=== PATIENT | male | born 1965 | race Caucasian/White ===

== ENCOUNTER 2024-11-19 12:04 | Inpatient (IN) | payer OTHER ==
[~2024-11-19] VITALS: Ht 162.6 cm; Wt 75.3 kg
[2024-11-19] MEDS: IV NS 0.9% 1,000 ML BAG IV ONE (13:22)
[2024-11-19 13:42] LABS: BASOPHILS # (AUTO) 0.1 K/uL (0.0-0.2); BASOPHILS % (AUTO) 0.8 % (0.0-2.0); EOSINOPHILS # (AUTO) 0.2 K/uL (0.0-0.7); EOSINOPHILS % (AUTO) 3.1 % (0.0-6.0); HEMATOCRIT 43 % (39-51); HEMOGLOBIN 14.9 g/dL (13.5-17.5); LYMPHOCYTES # (AUTO) 1.5 K/uL (0.8-4.8); LYMPHOCYTES % (AUTO) 22.5 % (20.0-44.0); MEAN CORPUSCULAR HEMOGLOBIN 31 PG (26.0-33.0); MEAN CORPUSCULAR HGB CONC 34 g/dl (31.0-36.0); MEAN CORPUSCULAR VOLUME 89 fL (80-96); MONOCYTES # (AUTO) 0.5 K/uL (0.1-1.30); MONOCYTES % (AUTO) 7.6 % (2.0-12.0); NEUTROPHILS # (AUTO) 4.3 K/uL (1.8-8.9); PLATELET COUNT (AUTO) 275 K/uL (150-450); RED BLOOD CELL COUNT(AUTO) 4.85 MIL/uL (4.5-6.0); WHITE BLOOD COUNT (AUTO) 6.6 K/uL (4.3-11.0)
[2024-11-19 13:48] LABS: CALCIUM, SERUM 9.8 mg/dL (8.5-10.1); CARBON DIOXIDE 28 mmol/L (21-32); CHLORIDE 99 mmol/L (98-107); CREATININE 1.3 mg/dL (0.6-1.3); GLUCOSE 387 mg/dL (74-106); POTASSIUM 4.2 mmol/L (3.5-5.1); SODIUM SERUM 135 mmol/L (136-145); UREA NITROGEN, BLOOD 19 mg/dL (7-18)
[2024-11-19 13:52] LABS: ALANINE AMINOTRANSFERASE 31 U/L (12-78); ALBUMIN 3.6 g/dL (3.4-5.0); ALKALINE PHOSPHATASE 127 U/L (46-116); ASPARTATE AMINOTRANSFERASE 15 U/L (15-37); BILIRUBIN,DIRECT 0.1 mg/dL (0.0-0.2); BILIRUBIN,TOTAL 0.3 mg/dL (0.2-1.0); TOTAL PROTEIN, SERUM 8.5 g/dL (6.4-8.2)
[2024-11-19 14:00] LABS: INR 0.92 (0.91-1.10); PARTIAL THROMBOPLASTIN TIME 28.8 SEC (24.3-34.3); PROTHROMBIN TIME 9.8 SECS (9.2-11.1)
[2024-11-19 14:07] LABS: LACTIC ACID 2.6 mmol/L (0.4-2.0)
[2024-11-19] MEDS ORDERED: MULT-594 PO (14:55)
[2024-11-19] MEDS ORDERED: ASPI-1420 PO (14:55)
[2024-11-19] MEDS ORDERED: GLIP5TAB13 PO (14:55)
[2024-11-19] MEDS ORDERED: METO25TA6 PO (14:55)
[2024-11-19] MEDS ORDERED: EMPA25TA PO (14:55)
[2024-11-19] MEDS ORDERED: METF-442 PO (14:55)
[2024-11-19] MEDS ORDERED: ATOR40TA PO (14:55)
[2024-11-19] MEDS ORDERED: OMEG-167 PO (14:55)
[2024-11-19] MEDS ORDERED: MAGNESIUM HYDROXIDE 30 ML UDC PO PRN (18:00)
[2024-11-19] MEDS ORDERED: MAG HYDROX/AL HYDROX/SIMETH 30 ML UDC PO PRN (18:00)
[2024-11-19] MEDS: VANCOMYCIN 1.5 GM in IV D5W 500 ML IV ONE (18:24)
[2024-11-19] MEDS: diphenhydrAMINE HCL 50 MG/ML VIAL IV ONE (18:57)
[2024-11-19 20:00] VITALS: BP 117/95; TEMP 97.5; O2SAT 93
[2024-11-19] MEDS: ZOSYN IVPB 3.375 G in IV D5W 50ml IV ONE (20:29)
[2024-11-19] MEDS: ACETAMINOPHEN 325 MG TABLET PO PRN (21:13)
[2024-11-19] MEDS ORDERED: DEXTROSE 50%-WATER 50 ML DISP.SYRIN IV PRN (22:30)
[2024-11-19] MEDS: BLOOD SUGAR DIAGNOSTIC 1 EACH STRIP VI SCH (22:44)
[2024-11-19] MEDS: *INSULIN REGULAR(HUMULIN R)HUM 100 UNIT/ML VIAL SQ PRN (22:47)
[2024-11-20] MEDS: PIPERACILLIN /TAZOBACTAM 3.375 G in IV D5W 100 ML IV SCH (04:09)
[2024-11-20] MEDS ORDERED: VANCOMYCIN 1 GM in IV D5W 250ml IV SCH (06:00)
[2024-11-20 06:39] LABS: BASOPHILS % (AUTO) 0.5 % (0.0-2.0); EOSINOPHILS # (AUTO) 0.4 K/uL (0.0-0.7); HEMATOCRIT 41 % (39-51); HEMOGLOBIN 13.8 g/dL (13.5-17.5); LYMPHOCYTES # (AUTO) 1.6 K/uL (0.8-4.8); LYMPHOCYTES % (AUTO) 23.6 % (20.0-44.0); MEAN CORPUSCULAR HEMOGLOBIN 30 PG (26.0-33.0); MEAN CORPUSCULAR HGB CONC 34 g/dl (31.0-36.0); MEAN CORPUSCULAR VOLUME 89 fL (80-96); MONOCYTES # (AUTO) 0.5 K/uL (0.1-1.30); NEUTROPHILS # (AUTO) 4.4 K/uL (1.8-8.9); NEUTROPHILS % (AUTO) 63.9 % (43.0-81.0); PLATELET COUNT (AUTO) 254 K/uL (150-450); RED BLOOD CELL COUNT(AUTO) 4.57 MIL/uL (4.5-6.0); RED CELL DISTRIBUTION WIDTH 13.5 % (11.5-15.0); WHITE BLOOD COUNT (AUTO) 6.9 K/uL (4.3-11.0)
[2024-11-20] MEDS: INSULIN REGULAR, HUMAN 100 UNIT/ML 3 ML VIAL SQ PRN (06:48)
[2024-11-20 06:49] LABS: CALCIUM, SERUM 9.1 mg/dL (8.5-10.1); CREATININE 1.2 mg/dL (0.6-1.3); PHOSPHORUS 3.9 mg/dL (2.5-4.9); POTASSIUM 3.5 mmol/L (3.5-5.1)
[2024-11-20 08:00] VITALS: BP 114/74; TEMP 97.7; O2SAT 96
[2024-11-20 16:00] VITALS: BP 114/75; TEMP 98.2; O2SAT 96
[2024-11-20] MEDS: METOPROLOL TARTRATE 25 MG TABLET PO SCH (16:52)
[2024-11-20 20:00] VITALS: BP 140/89; TEMP 98.4; O2SAT 97
[2024-11-20] MEDS ORDERED: DAPTOMYCIN 500 MG in IV NS 0.9% 50 ML IV SCH (21:30)
[2024-11-20] MEDS: EMPAGLIFLOZIN 25 MG TABLET PO SCH (21:44)
[2024-11-20] MEDS: DAPTOMYCIN 500 MG in IV NS 0.9% 50 ML IV ONE (21:50)
[2024-11-21 08:00] VITALS: BP 127/79; TEMP 97.9; O2SAT 95
[2024-11-21] MEDS: CEFTRIAXONE 2 G in IV D5W 100 ML IV SCH (08:59)
[2024-11-21] MEDS: LINEZOLID RTU BAG 600 MG in PREMIX 1 EA IV SCH (12:21)
[2024-11-21 16:00] VITALS: BP 135/88; TEMP 97.9; O2SAT 96
[2024-11-21 20:00] VITALS: BP 132/77; TEMP 98.2; O2SAT 97
[2024-11-22 00:51] VITALS: BP 132/77; TEMP 98.2; O2SAT 97
[2024-11-22 07:30] VITALS: BP 113/68; TEMP 97.8; O2SAT 96
[2024-11-22] MEDS: Z GUARD REMEDY 4 OZ OINT TP PRN (08:02)
[2024-11-22 16:00] VITALS: BP 127/81; TEMP 98.1; O2SAT 96
[2024-11-22 20:00] VITALS: BP 131/73; TEMP 97.7; O2SAT 97
[2024-11-23 08:00] VITALS: BP 123/74; TEMP 97.7; O2SAT 97
[2024-11-23 16:00] VITALS: BP 129/76; TEMP 98.1; O2SAT 98
[2024-11-23 20:00] VITALS: BP 137/84; TEMP 97.5; O2SAT 95
[2024-11-24] VITALS (7 sets, daily range): BP systolic 106–158; BP diastolic 60–105; TEMP 97.3–98.8; O2SAT 94–99
[2024-11-24 03:11] LABS: BASOPHILS % (AUTO) 0.5 % (0.0-2.0); EOSINOPHILS # (AUTO) 0.4 K/uL (0.0-0.7); EOSINOPHILS % (AUTO) 3.9 % (0.0-6.0); HEMATOCRIT 43 % (39-51); HEMOGLOBIN 14.5 g/dL (13.5-17.5); LYMPHOCYTES % (AUTO) 21.8 % (20.0-44.0); MEAN CORPUSCULAR HEMOGLOBIN 30 PG (26.0-33.0); MEAN CORPUSCULAR HGB CONC 34 g/dl (31.0-36.0); MEAN CORPUSCULAR VOLUME 88 fL (80-96); MONOCYTES % (AUTO) 10.5 % (2.0-12.0); NEUTROPHILS # (AUTO) 5.8 K/uL (1.8-8.9); NEUTROPHILS % (AUTO) 63.3 % (43.0-81.0); PLATELET COUNT (AUTO) 298 K/uL (150-450); RED BLOOD CELL COUNT(AUTO) 4.83 MIL/uL (4.5-6.0); RED CELL DISTRIBUTION WIDTH 13.9 % (11.5-15.0); WHITE BLOOD COUNT (AUTO) 9.1 K/uL (4.3-11.0)
[2024-11-24 03:21] LABS: ALBUMIN 3.3 g/dL (3.4-5.0); BILIRUBIN,TOTAL 0.3 mg/dL (0.2-1.0); CALCIUM, SERUM 9.2 mg/dL (8.5-10.1); CREATININE 1.4 mg/dL (0.6-1.3); INR 0.99 (0.91-1.10); PARTIAL THROMBOPLASTIN TIME 27.2 SEC (24.3-34.3); POTASSIUM 3.6 mmol/L (3.5-5.1); PROTHROMBIN TIME 10.5 SECS (9.2-11.1); TOTAL PROTEIN, SERUM 7.7 g/dL (6.4-8.2)
[2024-11-24] MEDS ORDERED: CEFAZOLIN 0 GM ONE (07:40)
[2024-11-24] MEDS ORDERED: POLYMYXIN B SULFATE 0 UNITS ONE (07:40)
[2024-11-24] MEDS ORDERED: ROCURONIUM BROMIDE 50 MG/5 ML ONE (07:44)
[2024-11-24] MEDS ORDERED: FENTANYL PF 250MCG/5ML AMPUL ONE (07:44)
[2024-11-24] MEDS ORDERED: MIDAZOLAM HCL 2 MG/2ML VIAL ONE (07:44)
[2024-11-24] MEDS ORDERED: HYDROGEN PEROXIDE 480 ML BOTTLE ONE (07:45)
[2024-11-24] MEDS ORDERED: BUPIVACAINE MPF W/EPI 0.25% 30 ML VIAL ONE (07:45)
[2024-11-24] MEDS ORDERED: KETOROLAC TROMETHAMINE INJ 30 MG/ML VIAL ONE (07:45)
[2024-11-24] MEDS ORDERED: CLINDAMYCIN 900 MG/6 ML VIAL ONE (07:48)
[2024-11-24] MEDS ORDERED: CEFAZOLIN 1 GM ONE (07:49)
[2024-11-24] MEDS ORDERED: DAPTOMYCIN 500 MG/VIAL VIAL IV ONE (07:52)
[2024-11-24] MEDS ORDERED: ONDANSETRON HCL/PF 4 MG/2 ML VIAL IVP PRN (09:30)
[2024-11-24] MEDS ORDERED: MORPHINE SULFATE INJ 10 MG/ML DISP.SYRIN IV PRN (09:30)
[2024-11-24] MEDS ORDERED: BLOOD SUGAR DIAGNOSTIC 1 EACH STRIP VI ONE (09:30)
[2024-11-24] MEDS ORDERED: METOCLOPRAMIDE HCL 10 MG/2 ML VIAL IV PRN (09:30)
[2024-11-24] MEDS ORDERED: MEPERIDINE HCL/PF 50 MG/ML DISP.SYRIN IV PRN (09:30)
[2024-11-24] MEDS ORDERED: MORPHINE SULFATE INJ 4 MG/ML DISP.SYRIN ONE (11:23)
[2024-11-24] MEDS ORDERED: MEPERIDINE25 MG SYR 25 MG/ML VIAL ONE (11:28)
[2024-11-24] MEDS: MORPHINE SULFATE INJ 4 MG/ML DISP.SYRIN IV PRN (12:42)
[2024-11-24] MEDS: ONDANSETRON HCL/PF 4 MG/2 ML VIAL IVP PRN (12:45)
[2024-11-25 00:48] VITALS: BP 123/78; TEMP 97.5; O2SAT 94
[2024-11-25 07:30] VITALS: BP_SYST 123; BP_SYST 136; BP_DIAS 66; BP_DIAS 75; TEMP 97.7; TEMP 97.9; O2SAT 96; O2SAT 97
[2024-11-25 09:36] LABS: BASOPHILS % (AUTO) 0.2 % (0.0-2.0); EOSINOPHILS # (AUTO) 0.1 K/uL (0.0-0.7); EOSINOPHILS % (AUTO) 1.1 % (0.0-6.0); HEMATOCRIT 37 % (39-51); HEMOGLOBIN 12.3 g/dL (13.5-17.5); LYMPHOCYTES # (AUTO) 1.5 K/uL (0.8-4.8); LYMPHOCYTES % (AUTO) 13.6 % (20.0-44.0); MEAN CORPUSCULAR HEMOGLOBIN 30 PG (26.0-33.0); MEAN CORPUSCULAR HGB CONC 33 g/dl (31.0-36.0); MEAN CORPUSCULAR VOLUME 90 fL (80-96); MONOCYTES # (AUTO) 0.9 K/uL (0.1-1.30); MONOCYTES % (AUTO) 8.3 % (2.0-12.0); NEUTROPHILS # (AUTO) 8.2 K/uL (1.8-8.9); NEUTROPHILS % (AUTO) 76.8 % (43.0-81.0); PLATELET COUNT (AUTO) 285 K/uL (150-450); RED BLOOD CELL COUNT(AUTO) 4.14 MIL/uL (4.5-6.0); WHITE BLOOD COUNT (AUTO) 10.7 K/uL (4.3-11.0)
[2024-11-25 09:49] LABS: CALCIUM, SERUM 8.6 mg/dL (8.5-10.1); CREATININE 1.3 mg/dL (0.6-1.3); PHOSPHORUS 3.2 mg/dL (2.5-4.9); POTASSIUM 3.7 mmol/L (3.5-5.1)
[2024-11-25] MEDS ORDERED: DAPTOMYCIN 600 MG in IV NS 0.9% 50 ML IV SCH (11:00)
[2024-11-25 16:00] VITALS: BP 105/63; TEMP 98.1; O2SAT 99
[2024-11-25 20:00] VITALS: BP 122/84; TEMP 97.9; O2SAT 97
[2024-11-25 21:47] VITALS: BP 122/84; TEMP 97.9; O2SAT 97
[2024-11-26 06:39] LABS: APPEARANCE,URINE CLEAR (CLEAR); BILIRUBIN,URINE NEGATIVE (NEGATIVE); BLOOD, URINE NEGATIVE Ery/uL (NEGATIVE); COLOR,URINE YELLOW (YELLOW); KETONES,URINE 3+ mg/dL (NEGATIVE); LEUKOCYTE ESTERASE ,URINE NEGATIVE (NEGATIVE); NITRITE, URINE NEGATIVE (NEGATIVE); PH,URINE 5.5 (5.0-8.0); PROTEIN,URINE NEGATIVE (NEGATIVE); UGLUCOSE 3+ mg/dL (NEGATIVE); UROBILINOGEN,URINE 0.2 EU/dL (0.2)
[2024-11-26 06:52] LABS: CREATININE, URINE 31.8 MG/DL (30.0-125.0); URINE TOTAL PROTEIN 10.5 mg/dL (0-11.9)
[2024-11-26 06:56] LABS: ADD URINE CULTURE NO; BACTERIA,URINE Rare /HPF (None Seen); RBC,URINE 0-2 /HPF (0-2); SQUAMOUS EPITHELIAL CELL,UR 0-2 /HPF (None Seen); WBC,URINE 0-2 /HPF (0-3)
[2024-11-26 08:30] VITALS: BP 130/86; TEMP 97.9; O2SAT 95
[2024-11-26 08:56] LABS: EOSINOPHIL,URINE None Seen
[2024-11-26] MEDS ORDERED: DAPT500V2 IV (10:44)
[2024-11-26] MEDS ORDERED: CEFT2VIA14 IV (10:44)
[2024-11-26] MEDS ORDERED: MECLIZINE HCL 25 MG TABLET PO PRN (11:00)
== END 2024-11-26 15:00 | disposition home health service (06) | DRG 496 ==
LOC: ER 12:15 → MED 13:44
PROVIDERS: ADMIT Internal Medicine; ATTEND Nurse Practitioner Family
PROC: 02HV33Z Insertion of Infusion Device into Superior Vena Cava, Percutaneous Approach (ICD-10-PCS; 2024-11-22)
PROC: B548ZZA Ultrasonography of Superior Vena Cava, Guidance (ICD-10-PCS; 2024-11-22)
PROC: 0RHK08Z Insertion of Spacer into Left Shoulder Joint, Open Approach (ICD-10-PCS; 2024-11-24)
PROC: 0RPK0JZ Removal of Synthetic Substitute from Left Shoulder Joint, Open Approach (ICD-10-PCS; principal; 2024-11-24 07:30)
DX: T84.59XA Infection and inflammatory reaction due to other internal joint prosthesis, initial encounter (principal); M00.9 Pyogenic arthritis, unspecified; Y83.8 Other surgical procedures as the cause of abnormal reaction of the patient, or of later complication, without mention of misadventure at the time of the procedure; Y92.89 Other specified places as the place of occurrence of the external cause; E78.5 Hyperlipidemia, unspecified; M89.8X9 Other specified disorders of bone, unspecified site; D64.9 Anemia, unspecified; Z95.3 Presence of xenogenic heart valve; Z88.1 Allergy status to other antibiotic agents; Z79.84 Long term (current) use of oral hypoglycemic drugs; Z79.82 Long term (current) use of aspirin; Z79.899 Other long term (current) drug therapy; E66.9 Obesity, unspecified; Z68.28 Body mass index [BMI] 28.0-28.9, adult; Z96.611 Presence of right artificial shoulder joint; Z96.612 Presence of left artificial shoulder joint; E11.22 Type 2 diabetes mellitus with diabetic chronic kidney disease; I12.9 Hypertensive chronic kidney disease with stage 1 through stage 4 chronic kidney disease, or unspecified chronic kidney disease; N18.9 Chronic kidney disease, unspecified
CPT/HCPCS: 36415; 71045-TC; 73020; 80048-TC; 80053-TC; 80061-TC; 80076-TC; 81001; 82570-TC; 82962-TC; 83605-TC; 83735-TC; 84100-TC; 84300-TC; 85025-TC; 85610-TC; 85730-TC; 86850-TC; 87040-TC; 87081-TC; 87102-TC; 88300-TC; 88305-TC; 88311-TC; 93307-TC; A4216; A4217; A4565; A6253; A6403; C1713; C1776; G0378; J0330; J0690; J0696; J0878; J1200; J1815; J1885; J2020; J2175; J2250; J2270; J2405; J2543; J2704; J2765; J3010; J3370; J3371; J3490; J7030; J7060